=== PATIENT | male | born 1990 | race Caucasian/White ===

== ENCOUNTER 2022-02-22 10:50 | Inpatient (IN) | payer MEDICAID, OTHER ==
[~2022-02-22] VITALS: Ht 180.3 cm; Wt 109.0 kg
[2022-02-22 11:29] LABS: BASOPHILS % (AUTO) 0.4 % (0.0-2.0); EOSINOPHILS % (AUTO) 0.6 % (1.0-6.0); HEMATOCRIT 39.2 % (41-53); HEMOGLOBIN 13.7 g/dL (13.5-17.5); LYMPHOCYTES # (AUTO) 1.4 K/uL (1.0-4.8); LYMPHOCYTES % (AUTO) 16.7 % (22.0-44.0); MEAN CORPUSCULAR HEMOGLOBIN 30.7 pg (26.0-34.0); MEAN CORPUSCULAR HGB CONC 34.8 G/dL (31.0-37.0); MEAN CORPUSCULAR VOLUME 88 fL (80-100); MONOCYTES # (AUTO) 0.5 K/uL (0.1-1.0); MONOCYTES % (AUTO) 5.9 % (2.0-9.0); NEUTROPHILS # (AUTO) 6.5 K/uL (1.8-7.7); NEUTROPHILS % (AUTO) 76.4 % (40.0-70.0); PLATELET COUNT (AUTO) 285 K/uL (150-450); RED BLOOD CELL COUNT(AUTO) 4.45 MIL/uL (4.50-5.90); RED CELL DISTRIBUTION WIDTH 13.6 % (11.5-14.5)
[2022-02-22 11:37] LABS: ANION GAP 11 mmol/L (8-16); CALCIUM, TOTAL 9.1 mg/dL (8.8-10.5); CARBON DIOXIDE 25 mmol/L (22-29); CHLORIDE 103 mmol/L (98-107); CREATININE 1.01 mg/dL (0.60-1.30); GLOMERULAR FILTR. RATE CALC > 60 mL/min (>60); GLUCOSE,RANDOM 111 mg/dL (70-110); POTASSIUM 3.4 mmol/L (3.5-5.1); SODIUM SERUM 139 mmol/L (136-145); UREA NITROGEN, BLOOD 13 mg/dL (7-18)
[2022-02-22 11:44] LABS: ALANINE AMINOTRANSFERASE 72 U/L (12-78); ALKALINE PHOSPHATASE 96 U/L (46-116); ASPARTATE AMINOTRANSFERASE 29 U/L (15-37); BILIRUBIN,TOTAL 0.6 mg/dL (0.1-1.0); TOTAL PROTEIN, SERUM 7.8 g/dL (6.4-8.2)
[2022-02-22 12:14] LABS: AMPHET/METH SCREEN,URINE NEGATIVE (NEGATIVE); BARBITURATE SCREEN, URINE NEGATIVE (NEGATIVE); BENZODIAZEPINES SCREEN,URINE NEGATIVE (NEGATIVE); CANNABINOID SCREEN,URINE POSITIVE (NEGATIVE); COCAINE SCREEN,URINE NEGATIVE (NEGATIVE); METHADONE SCREEN, URINE NEGATIVE (NEGATIVE); OPIATE SCREEN,URINE NEGATIVE (NEGATIVE)
[2022-02-22 12:15] LABS: PHENCYCLIDINE SCREEN,URINE NEGATIVE (NEGATIVE)
[2022-02-22] MEDS ORDERED: POTASSIUM CHLORIDE 20 MEQ ER TABLET PO ONE (13:00)
[2022-02-22 13:21] LABS: COVID AG,FIA SOURCE NASOPHARYNGEAL
[2022-02-22] MEDS ORDERED: ZOLPIDEM TARTRATE 10 MG TABLET PO PRN (13:30)
[2022-02-22] MEDS: LORazepam 2 MG TABLET PO PRN (13:53)
[2022-02-22] MEDS: HALOPERIDOL 5 MG TABLET PO PRN (13:53)
[2022-02-22 19:56] VITALS: BP 162/91
[2022-02-23] MEDS ORDERED: ONDANSETRON HCL 4 MG TABLET PO PRN (06:15)
[2022-02-23] MEDS ORDERED: ACETAMINOPHEN 325 MG TABLET PO PRN (06:15)
[2022-02-23] MEDS ORDERED: GuaiFENesin/D-METHORPHAN [SUGAR-FREE] 200-20MG/10 ML SYRUP UDCUP PO PRN (06:15)
[2022-02-23] MEDS ORDERED: MAG HYDROX/AL HYDROX/SIMETH ES 30 ML SUSPENSION UDCUP PO PRN (06:15)
[2022-02-23] MEDS ORDERED: NICOTINE 14 MG/24 HOUR PATCH TD PRN (06:15)
[2022-02-23] MEDS ORDERED: ALBUTEROL SULFATE HFA 90 MCG/PUFF 8 GM INHALER IH PRN (06:15)
[2022-02-23] MEDS ORDERED: CloNIDine HCL 0.1 MG TABLET PO PRN (06:15)
[2022-02-23] MEDS ORDERED: LOPERAMIDE HCL 2 MG CAPSULE PO PRN (06:15)
[2022-02-23] MEDS ORDERED: PETROLATUM,WHITE 28 GM JELLY TP PRN (06:15)
[2022-02-23] MEDS ORDERED: DOCUSATE SODIUM 100 MG CAPSULE PO PRN (06:15)
[2022-02-23] MEDS ORDERED: MAGNESIUM HYDROXIDE SUSPENSION 30 ML UDCUP PO PRN (06:15)
[2022-02-23] MEDS: HALOPERIDOL 5 MG TABLET PO PRN (08:21)
[2022-02-23] MEDS: LORazepam 2 MG TABLET PO PRN (08:21)
[2022-02-23 08:26] VITALS: BP 151/91
[2022-02-23] MEDS: DIVALPROEX SODIUM 500 MG DR TABLET PO SCH ×2 (11:30→20:15)
[2022-02-23] MEDS: RisperiDONE 2 MG TABLET PO SCH ×2 (11:30→20:15)
[2022-02-23] MEDS ORDERED: LORazepam 2 MG/ML VIAL ONE (14:50)
[2022-02-23] MEDS ORDERED: DiphenhydrAMINE HCL 50 MG/ML VIAL ONE (14:50)
[2022-02-23] MEDS ORDERED: ChlorproMAZINE HCL 50 MG/2 ML AMP ONE (14:50)
[2022-02-23] MEDS ORDERED: DiphenhydrAMINE HCL 50 MG/ML VIAL IM ONE (15:00)
[2022-02-23] MEDS ORDERED: LORazepam 2 MG/ML VIAL IM ONE (15:00)
[2022-02-23] MEDS ORDERED: ChlorproMAZINE HCL 50 MG/2 ML AMP IM ONE (15:00)
[2022-02-23 16:08] VITALS: BP 132/77
[2022-02-24 08:00] VITALS: BP 156/104
[2022-02-24] MEDS: RisperiDONE 2 MG TABLET PO SCH ×2 (09:00→20:19)
[2022-02-24] MEDS: DIVALPROEX SODIUM 500 MG DR TABLET PO SCH ×2 (09:00→20:19)
[2022-02-24 16:04] VITALS: BP 172/100
[2022-02-25 08:00] VITALS: BP 162/113
[2022-02-25] MEDS: RisperiDONE 2 MG TABLET PO SCH ×3 (08:18→20:01)
[2022-02-25] MEDS: DIVALPROEX SODIUM 500 MG DR TABLET PO SCH ×3 (08:18→20:01)
[2022-02-25 16:12] VITALS: BP 144/98
[2022-02-25] MEDS: HALOPERIDOL 5 MG TABLET PO PRN (19:20)
[2022-02-25] MEDS: LORazepam 2 MG TABLET PO PRN (19:20)
[2022-02-26 08:03] VITALS: BP 126/80
[2022-02-26] MEDS: DIVALPROEX SODIUM 500 MG DR TABLET PO SCH ×2 (08:19→20:00)
[2022-02-26] MEDS: RisperiDONE 2 MG TABLET PO SCH ×2 (08:19→20:00)
[2022-02-26 16:09] VITALS: BP 146/82
[2022-02-27 08:00] VITALS: BP 143/72
[2022-02-27] MEDS: RisperiDONE 2 MG TABLET PO SCH ×2 (10:01→20:24)
[2022-02-27] MEDS: DIVALPROEX SODIUM 500 MG DR TABLET PO SCH ×2 (10:01→20:24)
[2022-02-27 16:08] VITALS: BP 138/97
[2022-02-28 08:30] VITALS: BP 141/102
[2022-02-28] MEDS: RisperiDONE 2 MG TABLET PO SCH (09:09)
[2022-02-28] MEDS: DIVALPROEX SODIUM 500 MG DR TABLET PO SCH ×2 (09:09→20:27)
[2022-02-28 16:06] VITALS: BP 135/85
[2022-02-28] MEDS: RisperiDONE 3 MG TABLET PO SCH (20:27)
[2022-03-01 08:36] VITALS: BP 133/80
[2022-03-01] MEDS: DIVALPROEX SODIUM 500 MG DR TABLET PO SCH ×2 (09:34→20:11)
[2022-03-01] MEDS: RisperiDONE 3 MG TABLET PO SCH ×2 (09:34→20:11)
[2022-03-01 16:25] VITALS: BP 140/71
[2022-03-02 08:03] VITALS: BP 127/73
[2022-03-02] MEDS: RisperiDONE 3 MG TABLET PO SCH ×2 (08:19→20:45)
[2022-03-02] MEDS: DIVALPROEX SODIUM 500 MG DR TABLET PO SCH ×2 (08:19→20:45)
[2022-03-02] MEDS: HALOPERIDOL 5 MG TABLET PO PRN ×2 (08:20→19:30)
[2022-03-02 14:53] LABS: COVID AG,FIA SOURCE NASOPHARYNGEAL
[2022-03-02 16:22] VITALS: BP 138/82
[2022-03-02] MEDS: LORazepam 2 MG TABLET PO PRN (19:30)
[2022-03-03 08:47] VITALS: BP 159/81
[2022-03-03] MEDS: RisperiDONE 3 MG TABLET PO SCH ×2 (09:38→20:14)
[2022-03-03] MEDS: DIVALPROEX SODIUM 500 MG DR TABLET PO SCH ×2 (09:38→20:14)
[2022-03-03] MEDS: HALOPERIDOL 5 MG TABLET PO PRN (09:38)
[2022-03-03 16:11] VITALS: BP 132/78
[2022-03-04 08:00] VITALS: BP 138/80
[2022-03-04] MEDS: HALOPERIDOL 5 MG TABLET PO PRN (10:10)
[2022-03-04] MEDS: DIVALPROEX SODIUM 500 MG DR TABLET PO SCH ×2 (10:10→20:06)
[2022-03-04] MEDS: RisperiDONE 3 MG TABLET PO SCH ×2 (10:10→20:06)
[2022-03-04 16:41] VITALS: BP 155/86
[2022-03-05] MEDS: DIVALPROEX SODIUM 500 MG DR TABLET PO SCH ×2 (08:14→20:21)
[2022-03-05] MEDS: RisperiDONE 3 MG TABLET PO SCH ×2 (08:14→20:21)
[2022-03-05 08:56] VITALS: BP 126/65
[2022-03-05 16:11] VITALS: BP 141/82
[2022-03-06 08:05] VITALS: BP 115/66
[2022-03-06] MEDS: RisperiDONE 3 MG TABLET PO SCH ×2 (09:05→20:57)
[2022-03-06] MEDS: DIVALPROEX SODIUM 500 MG DR TABLET PO SCH ×2 (09:05→20:53)
[2022-03-06 16:26] VITALS: BP 133/65
[2022-03-06] MEDS: HALOPERIDOL 5 MG TABLET PO PRN (17:50)
[2022-03-06] MEDS: LORazepam 2 MG TABLET PO PRN (20:57)
[2022-03-07 08:08] VITALS: BP 119/63
[2022-03-07] MEDS: RisperiDONE 3 MG TABLET PO SCH (08:51)
[2022-03-07] MEDS: DIVALPROEX SODIUM 500 MG DR TABLET PO SCH (08:51)
[2022-03-07] MEDS ORDERED: DIVA-112 PO ×2 (09:36→17:45)
[2022-03-07] MEDS ORDERED: RISP3TAB63 PO (09:36)
[2022-03-07] MEDS ORDERED: RISP3TAB44 PO (17:45)
== END 2022-03-07 16:12 | disposition home or self-care (01) | DRG 753 ==
LOC: EMS 10:57 → EDSEX 10:57 → 3EC 13:26 → UNDOADMIN 13:26 → 3EC 17:51
PROVIDERS: ADMIT Psychiatry & Neurology Psychiatry; ATTEND Psychiatry & Neurology Psychiatry
DX: F31.2 Bipolar disorder, current episode manic severe with psychotic features (principal); D64.9 Anemia, unspecified; E87.6 Hypokalemia; F12.10 Cannabis abuse, uncomplicated; S60.819A Abrasion of unspecified wrist, initial encounter; J45.909 Unspecified asthma, uncomplicated; Z20.822 Contact with and (suspected) exposure to COVID-19; W25.XXXA Contact with sharp glass, initial encounter; Z59.00 Homelessness unspecified; Z79.899 Other long term (current) drug therapy; Z88.6 Allergy status to analgesic agent; Y93.89 Activity, other specified; Y92.89 Other specified places as the place of occurrence of the external cause; Y99.8 Other external cause status
CPT/HCPCS: 80053; 80164; 85025; 99285; G0480; J1200; J2060; J3230